=== PATIENT | female | born 1960 | race Caucasian/White ===

== ENCOUNTER 2016-12-25 00:27 | Emergency (ER) | payer SELFPAY ==
[2016-12-25 00:46] VITALS: BP 123/74
--- NOTE | 2016-12-25 00:54 | ER Document Report ---
[facility] GI/ - General Chief Complaint: Pelvic Pain Stated Complaint: ABDOMINAL PAIN, BLOOD IN URINE Time Seen by Provider: 12/25/16 00:46 Mode of Arrival: Ambulatory Information source: Patient TRAVEL OUTSIDE OF THE [place] IN LAST 30 DAYS: No - HPI Notes: 12/25/16 00:51 56-year-old female with prior history of total abdominal hysterectomy, appendectomy, and gastric bypass presents with suprapubic pressure that has been present for about a week. She is now having some hematuria with this. There is increased pressure towards the end of urination. No change with a single dose of Azo she took today. No nausea or vomiting. She has some burning in her left back region. Denies any other systemic symptoms. No chest pain breathing difficulty cough or cold symptoms. No vaginal discharge. Pain level 4/10. Past Medical History - Social History Smoking Status: Current Every Day Smoker Family History: Reviewed & Not Pertinent Review of Systems - Review of Systems -: Yes All other systems reviewed and negative Physical Exam - Vital signs Vitals: Temp Pulse Resp BP Pulse Ox 97.8 F 92 16 103/58 L 98 12/25/16 00:33 12/25/16 00:33 12/25/16 00:33 12/25/16 00:33 12/25/16 00:33 - Notes Notes: GENERAL: VS as per nursing doc. Well-appearing, well-nourished and in no acute distress. HEAD: Atraumatic, normocephalic. EYES: Sclera anicteric, no conjunctival injection or discharge. ENT: Oropharynx clear without exudates, moist mucous membranes. Poor dentition NECK: Normal range of motion, supple without lymphadenopathy. LUNGS: Coarse bilaterally. HEART: Regular rate and rhythm without murmurs. ABDOMEN: Soft, mild generalized abdominal tenderness more significant in the suprapubic region. No specific unilateral tenderness or mass noted. Large midline scar noted BACK: Mild left CVA tenderness. EXTREMITIES: Normal range of motion, no edema. NEUROLOGICAL: Cranial nerves grossly intact. Normal speech. Normal sensory and motor exams. No gross cerebellar abnormalities. PSYCH: Normal mood, normal affect. SKIN: Warm, dry, normal turgor, no petechiae noted. Course - Vital Signs Vital signs: Temp Pulse Resp BP Pulse Ox 97.8 F 84 16 123/74 98 12/25/16 00:33 12/25/16 00:45 12/25/16 00:45 12/25/16 00:45 12/25/16 00:45 - Laboratory Laboratory results interpreted by me: 12/25/16 00:41 Urine Protein 100 H Urine Blood LARGE H Urine Nitrite POSITIVE H Urine Urobilinogen 2.0 H Ur Leukocyte Esterase TRACE H Discharge - Discharge Clinical Impression: Pyelonephritis Condition: Good Disposition: HOME, SELF-CARE Instructions: Antibiotic Therapy ([facility]), Pyelonephritis ([facility]), Rocephin ([facility]) Additional Instructions: Please contact your physician to arrange follow-up for the next week. Return for worsening or concern. Use Ibuprofen or Aleve for discomfort. May also use the Pyridium. Prescriptions: Cephalexin Monohydrate [Keflex 500 mg Capsule] 500 mg PO Q6H 10 Days #40 capsule Phenazopyridine HCl [Pyridium 200 mg Tablet] 200 mg PO TID PRN #6 tablet PRN Reason: Urinary Pain
[2016-12-25 01:10] LABS: APPEARANCE,URINE CLOUDY; BILIRUBIN,URINE NEGATIVE (NEGATIVE); GLUCOSE, URINE NEGATIVE (NEGATIVE); KETONES,URINE NEGATIVE (NEGATIVE); LEUKOCYTE ESTERASE,URINE TRACE (NEGATIVE); NITRITE,URINE POSITIVE (NEGATIVE); PROTEIN,URINE 100 mg/dL (NEGATIVE); URINE SPECIFIC GRAVITY 1.009
[2016-12-25] MEDS ORDERED: LIDOCAINE 1% INJ-PF (10 MG/ML) 30 ML SDV INJ ONE (01:57)
[2016-12-25] MEDS ORDERED: CEFTRIAXONE INJ 1000 MG VIAL IM ONE (01:57)
== END 2016-12-25 02:17 | disposition home or self-care (01) ==
LOC: ER 00:27
DX: N12 Tubulo-interstitial nephritis, not specified as acute or chronic (principal); R10.2 Pelvic and perineal pain; R10.9 Unspecified abdominal pain; R31.9 Hematuria, unspecified; Z90.710 Acquired absence of both cervix and uterus; Z98.84 Bariatric surgery status; F17.200 Nicotine dependence, unspecified, uncomplicated
CPT/HCPCS: 99284; 96372; 87086; 87088; 81001; 87186; J0696